=== PATIENT | female | born 1960 | race Caucasian/White ===

== ENCOUNTER 2016-08-16 08:53 | Day surgery (SDC) | payer OTHER ==
[~2016-08-16 08:53] MED LIST: Buffered Lidocaine 0.9% SYRIN* 5 ML/SYR SYRINGE INTRADERM ONE
[2016-08-16] MEDS ORDERED: PROCHLORPERAZINE INJ 5 MG/ML 2 ML VIAL IV PRN (08:59)
[2016-08-16] MEDS ORDERED: Acetaminophen TAB* 325 MG PO PRN (08:59)
[2016-08-16] MEDS ORDERED: HYDROcodone/ACETAMIN 5-325 MG* 1 TAB PO PRN (08:59)
[2016-08-16] MEDS ORDERED: DiMENhydriNATE IV* 50 MG/ML VIAL IV PUSH PRN (08:59)
[2016-08-16] MEDS ORDERED: Ondansetron INJ* 2 MG/ML VIAL IV PRN (08:59)
[2016-08-16] MEDS ORDERED: Lidocaine 1% INJ* 10 MG/ML 30 ML SDV ONE (09:00)
[2016-08-16] MEDS ORDERED: fentaNYL* 50 MCG/ML 2 ML VIAL (100 MCG VIAL) ONE (10:22)
[2016-08-16] MEDS ORDERED: Midazolam* 1 MG/ML 2 ML VIAL (2 MG) ONE (10:22)
[2016-08-16] MEDS ORDERED: Lidocaine 2% PF * 5 ML VIAL ONE (10:50)
[2016-08-16] MEDS ORDERED: Ketorolac INJ* 30 MG/ML 1 ML VIAL ONE (10:50)
[2016-08-16] MEDS ORDERED: Propofol* 10 MG/ML 20 ML BTL IV PUSH ONE (10:50)
[2016-08-16 11:16] VITALS: BP 136/79
--- NOTE | 2016-08-16 12:17 | OP ---
DATE OF OPERATION: 08/16/[address] [facility] DATE OF : 64 SURGEON: Simona Guerin MD. SOFT [employer] MACHINE OPERATOR: MELISSA Godoy. ANESTHESIOLOGIST: Collin Douglass MD ANESTHESIA: Local MAC. PRE-OP DIAGNOSES: De Quervain's tenosynovitis and a ganglion cyst of the left wrist. POST-OP DIAGNOSES: De Quervain's tenosynovitis and a ganglion cyst of the left wrist. OPERATIVE PROCEDURE: Removal of ganglion left wrist and de Quervain's release. ESTIMATED BLOOD LOSS: Zero. TOURNIQUET TIME: About 8 minutes. INDICATIONS FOR PROCEDURE: Janell is a 55-year-old female who has a painful mass on the radial aspect of her left wrist. She has failed conservative treatment. She presents for de Quervain's release and ganglion cyst excision from the left wrist. DESCRIPTION OF PROCEDURE: The patient was brought to the operating room, was given a sedation anesthetic and a local infiltration with 10 cc of 1% plain lidocaine. The skin of her left hand and forearm was prepped and draped in the usual sterile fashion. The hand and forearm were exsanguinated and the tourniquet elevated to 250 mmHg. A longitudinal incision was made centered at the tip of the radial styloid and we dissected bluntly through the subcutaneous tissue. Branches of the radial sensory nerve were located and these were protected by the assistant technician, Marlene Quintana, with retractors. There was a fairly large ganglion cyst emanating from the first dorsal compartment, this was removed in its entirety and sent for pathology. The first dorsal compartment was then completely released. The APL and EPB tendons were in separate compartments and they were both released. Tendons were in good condition. Wound was irrigated and skin edges reapproximated with 4-0 nylon sutures. The wound was dressed with Xeroform, 4x4, Webril, and an Alexander wrap. The patient tolerated the procedure well and was brought to the recovery room in good condition. [id number]/[facility] #: [id number] MTDD
== END 2016-08-16 11:29 | disposition home or self-care (01) ==
LOC: OREAST 08:53
PROVIDERS: ATTEND Orthopaedic Surgery
DX: M65.4 Radial styloid tenosynovitis [de Quervain] (principal); M67.432 Ganglion, left wrist; G40.409 Other generalized epilepsy and epileptic syndromes, not intractable, without status epilepticus; I10 Essential (primary) hypertension
CPT/HCPCS: 88304; J1885; J2001; J2250; J2704; J3010